=== PATIENT | male | born 1995 | race African-American/Black ===

== ENCOUNTER 2016-07-25 18:19 | Emergency (ER) ==
[2016-07-25 18:26] VITALS: BP 154/93
[2016-07-25] MEDS ORDERED: PHENERGAN WITH CODEINE LIQUID PO ONE (19:04)
--- NOTE | 2016-07-25 19:12 | PROVIDER DOCUMENTATION ---
HPI-General Adult - General Chief Complaint: Cold Symptoms Stated Complaint: LIGHT HEADED Time Seen by Provider: 07/25/16 18:57 Source: patient Allergies/Adverse Reactions: Patient Allergies Allergy/AdvReac Type Severity Reaction Status Date / Time No Known Allergies Allergy Verified 11/18/14 20:18 - History of Present Illness -Gen Adult Nature of Presenting Problems: 21 yo M presents to the ER with complaint of runny nose, and cough x 1 day. Pt denies fever and body aches. Associated Symptoms: reports: cough, diarrhea, sinus congestion/drainage, nausea Review of Systems - Adult - REVIEW OF SYSTEMS - ADULT Constitutional: denies: chills, fever Eyes: reports: no symptoms reported Ears, Nose, Mouth & Throat: reports: no symptoms reported Cardiovascular: denies: chest pain, palpitations Respiratory: reports: cough. denies: shortness of breath Gastrointestinal: reports: diarrhea, nausea. denies: abdominal pain, vomiting Genitourinary: reports: no symptoms reported Musculoskeletal: denies: back pain, neck pain Integumentary: reports: no symptoms reported Neurological: reports: no symptoms reported Psychiatric: reports: no symptoms reported Endocrine: reports: no symptoms reported Hematologic/Lymphatic: reports: no symptoms reported Allergic/Immunologic: reports: no symptoms reported All Other Systems: Reviewed and Negative Past History - Adult - PAST MEDICAL HISTORY-ADULT Review of Records: reports: Old Records Reviewed, Nursing Assessment Review, Medications Reviewed Major Childhood Illnesses: reports: denies history Cardiovascular: reports: denies history Respiratory: reports: denies history Gastrointestinal: reports: denies history Obstetrical/Gynecological: reports: denies history Genitourinary: reports: denies history Musculoskeletal: reports: denies history Neurological: reports: denies history Endocrine/Immune: reports: denies history Other Conditions: reports: denies history - PRIOR SURGERIES/PROCEDURES Surgical/Procedure History: reports: none - IMMUNIZATION STATUS Childhood Immunizations: See Nurse Assessment Flu Vaccine: See Nurse Assessment - FAMILY HISTORY Family History: reviewed, not pertinent Physical Exam-General - PHYSICAL EXAM-ADULT Initial Vital Signs Reviewed: Yes - CONSTITUTIONAL General Appearance: appears well, alert - EYES Eyes: PERRL/EOMI, pink conjunctivae - HEAD, EARS, NOSE, MOUTH & THROAT HENMT: normocephalic/atraumatic, moist mucous membranes - RESPIRATORY Respiratory: chest non-tender, lungs clear - GASTROINTESTINAL (ABDOMEN) Abdominal Exam: normal bowel sounds, soft Progress - PLAN OF CARE/RESULTS Progress/Plan/Lab Results: Orders Category Date Time Status Codeine/Promethazine [Phenergan with Codeine Liquid] Med 07/25/16 19:04 Discontinued 10 ml PO NOW ONE Orders Category Date Time Status Codeine/Promethazine [Phenergan with Codeine Liquid] Med 07/25/16 19:04 Discontinued 10 ml PO NOW ONE Vital Signs Temp Pulse Resp BP Pulse Ox 07/25/16 18:22 97.9 F 99 H 18 154/93 100 No Known Allergies Allergy (Verified 11/18/14 20:18) Cyclobenzaprine [Flexeril] 10 mg PO HS #10 tablet 11/18/14 Levofloxacin [Levaquin] 500 mg PO DAILY #9 tablet 11/18/14 Naproxen 500 mg PO BID #20 tablet 11/18/14 Codeine/Promethazine [Phenergan with Codeine] 10 ml PO TID PRN PRN #120 ml 07/25 Departure - Departure Time of Disposition Order: 19:08 DIAGNOSIS: Cold URI (upper respiratory infection) Qualifiers: URI type: unspecified URI Qualified Code(s): J06.9 - Acute upper respiratory infection, unspecified Disposition: HOME 01 Certified Medical Emergency: Emergent Condition: Good Additional Instructions: ED Follow Up Instructions: You have been treated by a care provider in the Emergency Department. These instructions are being provided to you so you can have an understanding of how to care for yourself upon discharge. Upon discharge from the Emergency Department, you are responsible for making arrangements for follow-up care by a physician of your choice. Take all prescribed medications as directed. Return to the Emergency Department immediately for any new or worsening symptoms. You may call the Physician Referral phone number at [phone] to obtain a list of Physicians who are taking new patients. Prescriptions: Codeine/Promethazine [Phenergan with Codeine] 10 ml PO TID PRN PRN #120 ml PRN Reason: Cough Referrals: None,PCP [Primary Care Provider] - Jovany Cuevas MD [STAFF PHYSICIAN] - Forms: Return to School/Parent Work Instructions: Codeine; Phenylephrine; Promethazine oral syrup Attestation - Scribe Verification/Attestation Scribe:: Pruneski,Eddie Acting as Scribe for:: Keanu Andrade Scribe documention review:: This chart was documented by a scribe and accurately reflects the service the provider performed and the decisions made by the provider.
== END 2016-07-25 19:15 | disposition home or self-care (01) ==
LOC: P.ED 18:19
DX: J06.9 Acute upper respiratory infection, unspecified (principal); J00 Acute nasopharyngitis [common cold]; R42 Dizziness and giddiness; R09.89 Other specified symptoms and signs involving the circulatory and respiratory systems; R05 Cough; R19.7 Diarrhea, unspecified; R09.81 Nasal congestion; R11.0 Nausea
CPT/HCPCS: 99282